=== PATIENT | female | born 1940 | race Caucasian/White ===

== ENCOUNTER 2021-11-25 05:37 | Day surgery (SDC) | payer MEDICARE ==
[~2021-11-25] VITALS: Ht 158 cm; Wt 68.0 kg
[~2021-11-25 05:37] MED LIST: ACETAMINOPHEN500 M1 PO; ALLEGRA ALLERG180 MG PO; AMLODIPINE-BEN1 EAC4 PO; ATORVASTATIN CA20 MG PO; BACTRIM DS TAB1 EACH PO; CALCIUM 500+D1 EACH PO; FLUTICASONE PRO16 GM; HYDROCODON-ACE1 EAC2 PO; IMODIUM2 MG PO; LASIX20 MG PO; LOPRESSOR50 MG PO; NITROFURANTOIN100 MG PO; SYNTHROID 0.1M0.1 MG PO; TRAMADOL HCL50 MG PO; TRIAMTERENE-HC1 EACH PO; VITAMIN D3 COM1 EACH PO
[2021-11-25] MEDS ORDERED: CHILDREN'S ASPI81 MG PO (11:49)
[2021-11-26 07:30] LABS: BASOPHIL 0.8 % (0-2); EOSINOPHIL 1.4 % (0-7); HCT 30.5 % (37.0-47.0); HGB 9.4 g/dl (12.5-16.0); LYMPHOCYTE 24.4 % (15-48); MCH 27.9 pg (25.0-31.0); MCHC 30.8 g/dL (32.0-36.0); MCV 90.5 fL (78.0-100.0); MONOCYTE 11.4 % (0-12); MPV 9.9 fL (6.0-9.5); NRBC 0; PLT 166 K/uL (150-400); RBC 3.37 M/uL (4.20-5.40); RDW 13.9 % (11.5-14.0); WBC 5.2 K/uL (4.0-10.5)
[2021-11-26 07:55] LABS: BUN/CREAT RATIO (CALC) 26.4 RATIO; CREATININE 1.29 mg/dL (0.51-0.95); POTASSIUM 3.7 mmol/L (3.5-5.1)
[2021-11-26] MEDS ORDERED: FEOSOL325 MG PO (08:25)
== END 2021-11-26 10:47 | disposition home or self-care (01) ==
LOC: FAS 05:37 → EDSTATUS 07:00 → FAS 07:00 → FMS 07:50 → FAS 11-26 10:47
PROVIDERS: Orthopaedic Surgery
DX: M19.012 Primary osteoarthritis, left shoulder (principal); S81.801A Unspecified open wound, right lower leg, initial encounter; I12.9 Hypertensive chronic kidney disease with stage 1 through stage 4 chronic kidney disease, or unspecified chronic kidney disease; E11.22 Type 2 diabetes mellitus with diabetic chronic kidney disease; N18.9 Chronic kidney disease, unspecified; Z87.891 Personal history of nicotine dependence
CPT/HCPCS: 36415; 73020; 80048; 85025; 86850; 86900; 86901; 94010; 94762; 97162; 97166; 97530-GP; 97535; C1713; C1776; J0171; J0697; J1100; J1170; J2250; J2270; J2405; J2704; J2795; J3010; J7120